=== PATIENT | male | born 1945 | race Caucasian/White ===

== ENCOUNTER 2025-05-24 09:26 | Day surgery (SDC) | payer MEDICARE ==
[~2025-05-24] VITALS: Ht 180.3 cm; Wt 70.3 kg
[2025-05-24] VITALS (7 sets, daily range): BP systolic 106–151; BP diastolic 55–126; PULSE 69–85; RESP 11–16; TEMP 98; O2SAT 94–100
[~2025-05-24 09:26] MED LIST: AMLO10TA13 PO; LIDOcaine 2% Viscous 15ml cup MM ONE; LISI10TA27 PO; METF-1203 PO; PIOG15TA67 PO; ringers solution, lacted 1,000 ML IV SCH; simethicone 40mg/0.6ml oral drops 15ml PO ONE
[2025-05-24] MEDS ORDERED: fentaNYL/PF 50MCG/1 ML 2ML syringe ONE (12:08)
[2025-05-24] MEDS ORDERED: propofol inj 20 ML IV ONE (12:10)
== END 2025-05-24 13:24 | disposition home or self-care (01) ==
LOC: GI LAB 09:26
PROVIDERS: ATTEND Internal Medicine Gastroenterology
DX: D50.9 Iron deficiency anemia, unspecified (principal); K22.89 Other specified disease of esophagus; I10 Essential (primary) hypertension; E11.9 Type 2 diabetes mellitus without complications; K21.9 Gastro-esophageal reflux disease without esophagitis; E78.00 Pure hypercholesterolemia, unspecified; E03.9 Hypothyroidism, unspecified; G47.00 Insomnia, unspecified; I73.9 Peripheral vascular disease, unspecified; Z79.82 Long term (current) use of aspirin; Z79.84 Long term (current) use of oral hypoglycemic drugs; Z79.899 Other long term (current) drug therapy; Z90.49 Acquired absence of other specified parts of digestive tract; Z90.89 Acquired absence of other organs; Z88.5 Allergy status to narcotic agent; Z83.3 Family history of diabetes mellitus
CPT/HCPCS: 43239; 45378; 88305; 88342; A4618; A4620; A6402; A7000; J2704; J3010; J7030; J7120; Z7512; Z7610; A6449

== ENCOUNTER 2025-06-27 07:30 | Day surgery (SDC) | payer MEDICARE ==
[~2025-06-27] VITALS: Ht 182.9 cm; Wt 70.1 kg
[2025-06-27] VITALS (8 sets, daily range): BP systolic 122–130; BP diastolic 59–63; PULSE 65–70; RESP 16–17; TEMP 98.3; O2SAT 97–100
[~2025-06-27 07:30] MED LIST changes: -LIDOcaine 2% Viscous 15ml cup MM ONE; -ringers solution, lacted 1,000 ML IV SCH; -simethicone 40mg/0.6ml oral drops 15ml PO ONE
[2025-06-27] MEDS ORDERED: simethicone 40mg/0.6ml oral drops 15ml ONE (08:00)
[2025-06-27] MEDS: ringers solution, lacted 1,000 ML IV SCH (08:35)
[2025-06-27] MEDS ORDERED: MIDAZolam 1 MG/ML 5ML VIAL ONE (09:45)
[2025-06-27] MEDS ORDERED: fentaNYL/PF 50MCG/1 ML 2ML syringe ONE (09:45)
== END 2025-06-27 11:30 | disposition home or self-care (01) ==
LOC: PAS 07:30
PROVIDERS: ATTEND Internal Medicine Gastroenterology
DX: D50.0 Iron deficiency anemia secondary to blood loss (chronic) (principal); K57.30 Diverticulosis of large intestine without perforation or abscess without bleeding; K64.8 Other hemorrhoids; D12.5 Benign neoplasm of sigmoid colon; E78.5 Hyperlipidemia, unspecified; E03.9 Hypothyroidism, unspecified; E11.40 Type 2 diabetes mellitus with diabetic neuropathy, unspecified; G47.00 Insomnia, unspecified; I10 Essential (primary) hypertension; K21.9 Gastro-esophageal reflux disease without esophagitis; K22.70 Barrett's esophagus without dysplasia; Z79.84 Long term (current) use of oral hypoglycemic drugs; Z86.2 Personal history of diseases of the blood and blood-forming organs and certain disorders involving the immune mechanism
CPT/HCPCS: 45385; 99152; 99153; A4620; J2250; J3010; J7120; Z7512; Z7610; 88305